=== PATIENT | female | born 1985 | race Caucasian/White ===

== ENCOUNTER 2020-10-30 16:32 | Inpatient (IN) | payer OTHER ==
[2020-10-30] MEDS ORDERED: SODIUM CHLORIDE 0.9% 500 ML INFUS.BAG IV ONE (17:09)
[2020-10-30] MEDS ORDERED: ACETAMINOPHEN 1000 MG/100 ML VIAL (NON FORMULARY) IVPB ONE (17:09)
[2020-10-30] MEDS ORDERED: SILVER SULFADIAZINE 1% TOP CREAM 50 GM JAR TP ONE (17:23)
[2020-10-30 17:52] LABS: BASO % 0.5 % (0-2.0); EOS % 0.2 % (0-4.5); HEMATOCRIT 24.4 % (32.4-45.2); HEMOGLOBIN 7.8 GM/dL (10.7-15.3); LYMPH % 13.3 % (8-40); MCH 22.1 pg (25.7-33.7); MCHC 31.8 g/dl (32.0-36.0); MEAN CELL VOLUME 69.4 fl (80-96); MEAN PLT VOLUME 6.7 fl (7.5-11.1); MONO % 8.5 % (3.8-10.2); NEUT % 77.5 % (42.8-82.8); PLATELET COUNT 309 10^3/uL (134-434); RBC 3.51 M/mm3 (3.60-5.2); RDW 20.1 % (11.6-15.6); WHITE BLOOD COUNT 6.7 K/mm3 (4.0-10.0)
[2020-10-30 17:58] LABS: INR 1.21 (0.83-1.09); PROTHROMBIN TIME (PATIENT) 14.6 SEC (9.7-13.0)
[2020-10-30 18:01] LABS: ACTIVATED PTT 27.9 SECONDS (25.2-36.5)
[2020-10-30 18:20] LABS: BLOOD UREA NITROGEN 7.3 mg/dL (7-18); CALCIUM 8.1 mg/dL (8.5-10.1)
[2020-10-30 18:23] LABS: CREATININE 0.5 mg/dL (0.55-1.3)
[2020-10-30 18:25] LABS: BILIRUBIN,TOTAL 0.4 mg/dL (0.2-1); TOT PROT 6.6 g/dl (6.4-8.2)
[2020-10-30] MEDS ORDERED: ACETAMINOPHEN INJECTION 100 ML IVPB ONE (19:41)
[2020-10-30 20:25] LABS: HEMATOCRIT 19.8 % (32.4-45.2); MCH 22.4 pg (25.7-33.7); MCHC 32.2 g/dl (32.0-36.0); MEAN CELL VOLUME 69.5 fl (80-96); MEAN PLT VOLUME 6.7 fl (7.5-11.1); PLATELET COUNT 251 10^3/uL (134-434); RBC 2.85 M/mm3 (3.60-5.2); RDW 20.1 % (11.6-15.6); WHITE BLOOD COUNT 9.8 K/mm3 (4.0-10.0)
[2020-10-30 20:49] LABS: HEMOGLOBIN 6.4 GM/dL (10.7-15.3)
[2020-10-30 22:03] LABS: EPI CELLS >36 /uL (0-25.1); HYALINE CASTS 19 /uL (0-3.1); URINE APPEARANCE TURBID; URINE BACTERIA 0 /uL (0-1359); URINE BILIRUBIN 1+ (NEGATIVE); URINE COLOR RED; URINE GLUCOSE (UA) NEGATIVE (NEGATIVE); URINE KETONE 4+ (NEGATIVE); URINE LEUK ESTERASE 2+ (NEGATIVE); URINE NITRITE NEGATIVE (NEGATIVE); URINE PROTEIN 3+ (NEGATIVE); URINE UROBILINOGEN 0.2 mg/dL (0.2-1.0); URINE WBC 472 /uL (0-25.8)
[2020-10-30 23:45] LABS: URINE RBC 48368.1 /uL (0-23.9)
[2020-10-30] MEDS ORDERED: METHYLERGONOVINE MALEATE 0.2 MG/1 ML AMP IM ONE (23:52)
[2020-10-30] MEDS ORDERED: ONDANSETRON 4 MG/2 ML VIAL IM PRN (23:53)
[2020-10-31] MEDS ORDERED: ONDANSETRON 4 MG/2 ML VIAL ONE (00:10)
[2020-10-31] MEDS ORDERED: KETOROLAC TROMETHAMINE 30 MG/1 ML VIAL ONE (00:10)
[2020-10-31] MEDS: KETOROLAC TROMETHAMINE 30 MG/1 ML VIAL IVPUSH PRN ×2 (00:28→22:25)
[2020-10-31 03:31] VITALS: BMI 24.9
[2020-10-31] MEDS: ONDANSETRON 4 MG/2 ML VIAL IVPUSH PRN (06:39)
[2020-10-31] MEDS ORDERED: ACETAMINOPHEN 500 MG TABLET (FP) PO ONE (12:20)
[2020-10-31 13:51] LABS: HEMATOCRIT 27.2 % (32.4-45.2); HEMOGLOBIN 8.9 GM/dL (10.7-15.3); MCH 24.5 pg (25.7-33.7); MCHC 32.8 g/dl (32.0-36.0); MEAN CELL VOLUME 74.8 fl (80-96); MEAN PLT VOLUME 6.9 fl (7.5-11.1); PLATELET COUNT 253 10^3/uL (134-434); RBC 3.64 M/mm3 (3.60-5.2); RDW 21.7 % (11.6-15.6); WHITE BLOOD COUNT 7.9 K/mm3 (4.0-10.0)
[2020-11-01] MEDS: ONDANSETRON 4 MG/2 ML VIAL IVPUSH PRN ×2 (00:59→08:58)
[2020-11-01 12:35] VITALS: BP 110/60; PULSE 68; TEMP 98.6
== END 2020-11-01 16:00 | disposition home or self-care (01) | DRG 564 ==
LOC: JER 16:32 → JERBED 17:24 → J6S 10-31 01:29
PROVIDERS: ADMIT Obstetrics & Gynecology; ATTEND Obstetrics & Gynecology
PROC: 0UC97ZZ Extirpation of Matter from Uterus, Via Natural or Artificial Opening (ICD-10-PCS; principal; 2020-10-30)
PROC: 30233N1 Transfusion of Nonautologous Red Blood Cells into Peripheral Vein, Percutaneous Approach (ICD-10-PCS; 2020-10-30)
DX: O03.4 Incomplete spontaneous abortion without complication (principal); D64.9 Anemia, unspecified
CPT/HCPCS: 36415; 36430; 70450-TC; 76830-TC; 80053; 81003; 84702; 85025; 85027; 85610; 85730; 86850; 86900; 86901; 86922; 87086; 93005; 93010; 99285-25; C9803; J0131; P9058; U0003; U0005